=== PATIENT | female | born 1955 | race Hispanic/Latino ===

== ENCOUNTER → 2024-06-17 | Outpatient (CLI) | payer MEDICARE | END | disposition home or self-care (01) | LOC: EDUNIT# 10:40 → SHCH 11:00 | PROVIDERS: ATTEND Internal Medicine Cardiovascular Disease | DX: I87.2 Venous insufficiency (chronic) (peripheral) (principal); I87.1 Compression of vein; I73.9 Peripheral vascular disease, unspecified | CPT/HCPCS: 93925; 93970 ==

== ENCOUNTER → 2024-10-05 | Outpatient (CLI) | payer OTHER, MEDICARE ==
--- NOTE | 2024-10-09 14:03 | HMCSR ---
APPROVED REPORT EXAM: Two-dimensional and M-mode echocardiogram with Doppler and color Doppler. INDICATION ICD: I44.7 LBBB 2D Dimensions RVDd2.4 cmLVEF(%)46.3 (>50%)LVED Vol(simp.)103.0 mL IVSd1.0 (0.7-1.1cm)FS(%)23 %LVES Vol(simp.)56.0 mL LVDd4.6 (3.8-5.6cm)Ao Root(2D)3.1 (2.0-3.7cm)LVEF(%, simp.)45 % PWd0.9 (0.7-1.1cm)LVOT diam2.0 (1.8-2.4cm)LA ESV INDEX (BP)18.55 mL/m2 LVDs3.6 (2.5-4.0cm) Aortic Valve AoV Vmax1.3 m/Royce Peak GR6.9 mmHgLVOT Vmax0.9 m/s AoV VTI0.2 mAo Mean GR3.8 mmHgLVOT VTI0.17 m ANGELIQUE (VMAX)2.2 cm2AVA (VTI) 2.2 cm2 Mitral Valve MV E Vmax64.5 cm/sDECEL Srsh645 ms MV A Ebwe040.5 cm/sP 1/2 T37 ms E/A ratio0.6MVA (PHT)5.9 cm2 MR Max PG84 mmHg TDI E/E' Btesdm26.6E/E' Birbwsp28.2 Pulmonary Valve PV Vmax1.2 m/sPV VTI0.23 mPV Mean GR3 mmHg PV Peak GR5.5 mmHgPI End Serenity. Melvin 1.4 cm/s Tricuspid Valve RAP (EST) 3 mmHg Left Ventricle The left ventricle structure and function is normal. Septal dyskinesis noted possibly from post CABG state versus bundle branch block There is normal left ventricular wall thickness. LVEF is 45-50%. Gra de 1 diastolic dysfunction Right Ventricle The right ventricle is normal size. Right ventricular systolic function is reduced. Atria The left atrium size is normal. The right atrium size is normal. Aortic Valve Aortic valve is trileaflet. Aortic valve leaflets are sclerotic but open well. Trace aortic regurgita tion. There is no aortic valvular stenosis. Mitral Valve The mitral valve is mildly thickened. Mitral regurgitation is trace. There is no mitral valve stenosi s. Tricuspid Valve The tricuspid valve leaflets appear normal. There is trace tricuspid regurgitation. Pulmonic Valve The pulmonic valve leaflets are thin and pliable; valve motion is normal. There is trace to mild valv ular regurgitation. Great Vessels The aortic root is normal in size. IVC is not well visualized. Pericardium No pericardial effusion. Conclusion LVEF is 45-50%. Septal dyskinesis noted possibly from post CABG state versus bundle branch block The aortic root is normal in size. No pericardial effusion.
== END | disposition home or self-care (01) ==
LOC: SHCH 15:39
PROVIDERS: ATTEND Internal Medicine Cardiovascular Disease
DX: I08.8 Other rheumatic multiple valve diseases (principal); I44.7 Left bundle-branch block, unspecified
CPT/HCPCS: 93306

== ENCOUNTER → 2024-10-31 | Outpatient (CLI) | payer OTHER, MEDICARE ==
--- NOTE | 2024-10-31 15:47 | HMCIMG ---
HAND 3+VWS RT HISTORY: Pain COMPARISON: None TECHNIQUE: 3 images of right hand were obtained. FINDINGS: There is no acute displaced fracture or dislocation. Radiocarpal joint space narrowing and interphalangeal joint space narrowing are seen. Erosive changes are seen of the carpal bones. Degenerative changes are seen. IMPRESSION: 1. Findings as described above.
== END | disposition home or self-care (01) ==
LOC: RAH 15:04
PROVIDERS: ATTEND Internal Medicine
DX: M19.041 Primary osteoarthritis, right hand (principal); M79.641 Pain in right hand
CPT/HCPCS: 73130